=== PATIENT | female | born 1985 | race African-American/Black ===

== ENCOUNTER 2017-03-06 18:09 | Emergency (ER) | payer MEDICAID, OTHER ==
[~2017-03-06] VITALS: Ht 162.6 cm; Wt 89.0 kg
[2017-03-06] MEDS ORDERED: ONDANSETRON 4MG ODT PO ONE (23:30)
[2017-03-06] MEDS ORDERED: KETOROLAC 30MG/ML VIAL IM ONE (23:30)
[2017-03-07 00:44] VITALS: BP 119/67
== END 2017-03-07 00:45 | disposition home or self-care (01) ==
LOC: ER 19:18
DX: S39.012A Strain of muscle, fascia and tendon of lower back, initial encounter (principal); X58.XXXA Exposure to other specified factors, initial encounter; Y93.9 Activity, unspecified; Y92.9 Unspecified place or not applicable; J45.909 Unspecified asthma, uncomplicated
CPT/HCPCS: 81025; 96372; 99283; J1885; Q0162

== ENCOUNTER 2018-09-06 16:53 | Emergency (ER) | payer SELFPAY ==
[~2018-09-06] VITALS: Ht 170.2 cm; Wt 77.0 kg
[2018-09-06] MEDS ORDERED: IBUPROFEN 600MG TABLET PO ONE (17:45)
[2018-09-06] MEDS ORDERED: TETANUS, DIPHTHERIA, PERTUSSIS VAC/PF 0.5ML (>7YR OLD) IM ONE (18:00)
[2018-09-06] MEDS ORDERED: BACITRACIN ZINC OINT UDPKT TOP ONE (18:00)
[2018-09-06 18:28] VITALS: BP 136/82
== END 2018-09-06 22:49 | disposition home or self-care (01) ==
LOC: ER 16:53
DX: S40.022A Contusion of left upper arm, initial encounter (principal); S60.221A Contusion of right hand, initial encounter; J45.909 Unspecified asthma, uncomplicated; V49.88XA Car occupant (driver) (passenger) injured in other specified transport accidents, initial encounter; Y93.89 Activity, other specified; Y92.89 Other specified places as the place of occurrence of the external cause; Y99.8 Other external cause status
CPT/HCPCS: 73130; 81025; 90471; 90715; 99283

== ENCOUNTER 2021-07-26 23:13 | Emergency (ER) | payer BC ==
[~2021-07-26] VITALS: Ht 170.2 cm; Wt 100.0 kg
[2021-07-26 23:21] VITALS: BP 135/79
[2021-07-27 01:35] LABS: CLARITY URINE CLEAR (CLEAR); COLOR URINE YELLOW (YELLOW); KETONES URINE NEGATIVE (NEGATIVE); LEUKOCYTE ESTERASE URINE NEGATIVE (NEGATIVE); NITRITE URINE NEGATIVE (NEGATIVE); OCCULT BLOOD URINE 3+ (NEGATIVE); PH URINE 5.5 (4.5-8.0); PROTEIN URINE NEGATIVE (NEGATIVE); SPECIFIC GRAVITY URINE 1.026 (1.005-1.030); UROBILINOGEN URINE 0.2 E.U./dL (0.2-1.0)
[2021-07-27] MEDS ORDERED: ACETAMINOPHEN 325MG TABLET PO ONE (02:15)
[2021-07-27 02:20] LABS: BASOPHILS % 0.8 % (0.0-2.0); EOSINOPHILS % 0.5 % (0.0-5.0); HEMATOCRIT. 39.5 % (36.0-48.0); HEMOGLOBIN. 13.2 g/dL (12.0-16.0); LYMPHOCYTES % 37.2 % (20.0-50.0); MEAN CORPUSCULAR HEMOGLOBIN 29.7 pg (28.0-32.0); MEAN CORPUSCULAR VOLUME 88.8 fL (81.0-99.0); MEAN PLATELET VOLUME 8.5 fl (7.4-10.4); MONOCYTES % 4.7 % (2.0-8.0); NEUTROPHILS % 56.8 % (40.0-76.0); PLATELET 350 x1000/uL (130-400); RED BLOOD CELL COUNT 4.45 mill/uL (4.2-5.4); RED CELL DISTRIBUTION WIDTH 14.3 % (11.6-14.6)
[2021-07-27 02:27] LABS: CHLORIDE 107 mEq/L (98-107)
[2021-07-27 02:38] LABS: B-HCG QUANTITATIVE < 1 mIU/mL (<3)
[2021-07-27] MEDS ORDERED: IBUP-2029 MT (02:48)
== END 2021-07-27 03:06 | disposition home or self-care (01) ==
LOC: ER 23:13
DX: D25.9 Leiomyoma of uterus, unspecified (principal); N83.201 Unspecified ovarian cyst, right side; J45.909 Unspecified asthma, uncomplicated; M54.30 Sciatica, unspecified side
CPT/HCPCS: 36415; 76830; 76856; 80053; 81003; 81025; 84702; 85025; 86850; 86900; 99284

== ENCOUNTER 2023-04-03 05:16 | Emergency (ER) | payer BC ==
[~2023-04-03] VITALS: Ht 167.6 cm; Wt 100.0 kg
[~2023-04-03 05:16] MED LIST: IBUP-2029 MT
[2023-04-03] MEDS ORDERED: ALBUTEROL (0.5%) 2.5MG/0.5ML NEB HHN ONE (08:30)
[2023-04-03] MEDS ORDERED: IPRATROPIUM BROMIDE (0.02%) 0.5MG/2.5ML NEB HHN ONE (08:30)
[2023-04-03 09:13] LABS: CLARITY URINE SL HAZY (CLEAR); COLOR URINE YELLOW (YELLOW); GLUCOSE URINE NEGATIVE (NEGATIVE); KETONES URINE 1+ (NEGATIVE); OCCULT BLOOD URINE NEGATIVE (NEGATIVE); PH URINE 5.5 (4.5-8.0); PROTEIN URINE NEGATIVE (NEGATIVE); SPECIFIC GRAVITY URINE >=1.030 (1.005-1.030)
[2023-04-03 09:14] LABS: LEUKOCYTE ESTERASE URINE NEGATIVE (NEGATIVE); NITRITE URINE NEGATIVE (NEGATIVE); UROBILINOGEN URINE 0.2 E.U./dL (0.2-1.0)
[2023-04-03 09:17] LABS: RBC URINE 0-2 /hpf (0-2); YEAST URINE NONE SEEN
[2023-04-03 09:18] LABS: BACTERIA URINE 2+; MUCUS URINE 2+ /lpf (< = 2+); SQUAMOUS EPITHELIAL CELL URINE 1+ /lpf (RARE/1+)
[2023-04-03 09:56] VITALS: PULSE 79; RESP 18; O2SAT 99
[2023-04-03 10:11] LABS: BASOPHILS % 0.5 % (0.0-2.0); EOSINOPHILS % 0.3 % (0.0-5.0); HEMATOCRIT. 35.2 % (36.0-48.0); HEMOGLOBIN. 11.5 g/dL (12.0-16.0); LYMPHOCYTES % 24.3 % (20.0-50.0); MEAN CORPUSCULAR HEMOGLOBIN 28.9 pg (28.0-32.0); MEAN CORPUSCULAR HGB CONC 32.6 g/dL (31.0-37.0); MEAN CORPUSCULAR VOLUME 88.7 fL (81.0-99.0); MEAN PLATELET VOLUME 7.8 fl (7.4-10.4); MONOCYTES % 4.8 % (2.0-8.0); NEUTROPHILS % 70.1 % (40.0-76.0); PLATELET 441 x1000/uL (130-400); RED BLOOD CELL COUNT 3.97 mill/uL (4.2-5.4); RED CELL DISTRIBUTION WIDTH 14.2 % (11.6-14.6); WHITE BLOOD COUNT 14.7 x1000/uL (4.5-11.0)
[2023-04-03 10:45] LABS: ALANINE AMINOTRANSFERASE < 7 IU/L (10-49); ALBUMIN 4.2 g/dL (3.2-4.8); ASPARTATE AMINOTRANSFERASE 10 IU/L (<34); BILIRUBIN TOTAL 0.6 mg/dL (0.1-1.0); CALCIUM 9.1 mg/dL (8.7-10.4); CARBON DIOXIDE 25 mEq/L (21-32); CHLORIDE 104 mEq/L (98-107); CREATININE 0.6 mg/dL (0.6-1.0); GLUCOSE 89 mg/dL (70-105); POTASSIUM 3.4 mEq/L (3.5-5.1); PROTEIN TOTAL 6.4 g/dL (6.0-8.3); SODIUM 138 mEq/L (136-145); UREA NITROGEN BLOOD 9 mg/dL (9-23)
[2023-04-03 11:39] VITALS: BP 125/57; PULSE 79; RESP 18; TEMP 98.2
== END 2023-04-03 11:42 | disposition home or self-care (01) ==
LOC: ER 05:25
DX: O20.0 Threatened abortion (principal); O99.511 Diseases of the respiratory system complicating pregnancy, first trimester; Z3A.00 Weeks of gestation of pregnancy not specified; Z20.822 Contact with and (suspected) exposure to COVID-19
CPT/HCPCS: 80053; 81003; 81025; 84702; 85025; 86850; 86900; 86901; 87804 ×2; 36415; 71045; 76801; 76817; 94640; 99284; 87426; Z7610 ×3; C9803

== ENCOUNTER 2024-09-06 23:56 | Emergency (ER) | payer MEDICAID ==
[~2024-09-06] VITALS: Ht 170.2 cm; Wt 107.0 kg
[2024-09-06 23:58] VITALS: O2SAT 100
[2024-09-07 00:50] VITALS: BP 141/82; PULSE 94; TEMP 36.9; O2SAT 100
[2024-09-07 01:59] LABS: CHLORIDE 104 mEq/L (98-107); SODIUM 138 mEq/L (136-145)
[2024-09-07 02:00] LABS: CALCIUM 9.4 mg/dL (8.7-10.4); CARBON DIOXIDE 26 mEq/L (21-32)
[2024-09-07 02:05] LABS: CREATININE 0.8 mg/dL (0.6-1.0); GLUCOSE 87 mg/dL (70-105); UREA NITROGEN BLOOD 12 mg/dL (9-23)
[2024-09-07 02:09] LABS: BASOPHILS % 0.5 % (0.0-2.0); EOSINOPHILS % 0.4 % (0.0-5.0); HEMATOCRIT. 40.8 % (36.0-48.0); HEMOGLOBIN. 13.7 g/dL (12.0-16.0); LYMPHOCYTES % 26.8 % (20.0-50.0); MEAN CORPUSCULAR HGB CONC 33.6 g/dL (31.0-37.0); MEAN CORPUSCULAR VOLUME 89.3 fL (81.0-99.0); MEAN PLATELET VOLUME 8.4 fl (7.4-10.4); MONOCYTES % 4.6 % (2.0-8.0); NEUTROPHILS % 67.7 % (40.0-76.0); PLATELET 394 x1000/uL (130-400); RED BLOOD CELL COUNT 4.57 mill/uL (4.2-5.4); RED CELL DISTRIBUTION WIDTH 13.1 % (11.6-14.6); WHITE BLOOD COUNT 11.7 x1000/uL (4.5-11.0)
[2024-09-07] MEDS: DEXAMETHASONE 10 MG/ML VIAL IM ONE (04:17)
[2024-09-07 04:18] VITALS: RESP 13
[2024-09-07] MEDS: LIDOCAINE 5% PATCH TOP SCH (04:18)
[2024-09-07 04:33] LABS: HCG SCREEN NEGATIVE
[2024-09-07] MEDS ORDERED: NAPR-1176 MT (06:07)
[2024-09-07] MEDS ORDERED: LIDO-53 TP (06:07)
== END 2024-09-07 06:20 | disposition home or self-care (01) ==
LOC: ER 23:56
DX: M51.369 Other intervertebral disc degeneration, lumbar region without mention of lumbar back pain or lower extremity pain (principal); J45.909 Unspecified asthma, uncomplicated; Z98.890 Other specified postprocedural states
CPT/HCPCS: 99285; 81025; 72131; 80048; 84703; 83690; 85025; 36415; 96372; J1100

== ENCOUNTER 2024-11-21 15:49 | Emergency (ER) | payer MEDICAID ==
[~2024-11-21] VITALS: Ht 167.6 cm; Wt 91.0 kg
[~2024-11-21 15:49] MED LIST changes: +LIDO-53 TP; +NAPR-1176 MT
[2024-11-21 15:51] VITALS: O2SAT 99
[2024-11-21 15:56] VITALS: TEMP 36.9; O2SAT 96
[2024-11-21 18:23] LABS: CLARITY URINE CLOUDY (CLEAR); COLOR URINE YELLOW (YELLOW); GLUCOSE URINE NEGATIVE (NEGATIVE); KETONES URINE TRACE (NEGATIVE); LEUKOCYTE ESTERASE URINE NEGATIVE (NEGATIVE); NITRITE URINE NEGATIVE (NEGATIVE); OCCULT BLOOD URINE NEGATIVE (NEGATIVE); PH URINE 5.5 (4.5-8.0); PROTEIN URINE 1+ (NEGATIVE); SPECIFIC GRAVITY URINE 1.045 (1.005-1.030); UROBILINOGEN URINE 0.2 E.U./dL (0.2-1.0)
[2024-11-21 18:46] LABS: RBC URINE 0-2 /hpf (0-2); WBC URINE 0-2 /hpf (0-2)
[2024-11-21 18:47] LABS: BACTERIA URINE 2+; SQUAMOUS EPITHELIAL CELL URINE 2+ /lpf (RARE/1+)
[2024-11-21] MEDS: LIDOCAINE HCL 1% 20ML VIAL INFIL ONE (19:15)
[2024-11-21] MEDS: KETOROLAC 15MG/ML VIAL IV ONE (19:31)
[2024-11-21 19:52] LABS: BASOPHILS % 0.3 % (0.0-2.0); EOSINOPHILS % 0.2 % (0.0-5.0); HEMATOCRIT. 35.6 % (36.0-48.0); HEMOGLOBIN. 11.8 g/dL (12.0-16.0); LYMPHOCYTES % 16.4 % (20.0-50.0); MEAN PLATELET VOLUME 8.2 fl (7.4-10.4); MONOCYTES % 4.5 % (2.0-8.0); NEUTROPHILS % 78.6 % (40.0-76.0); PLATELET 412 x1000/uL (130-400); RED BLOOD CELL COUNT 3.93 mill/uL (4.2-5.4); RED CELL DISTRIBUTION WIDTH 13.5 % (11.6-14.6)
[2024-11-21 20:01] LABS: CREATININE 0.8 mg/dL (0.6-1.0); UREA NITROGEN BLOOD 11 mg/dL (9-23)
[2024-11-21 22:31] VITALS: BP 111/64; PULSE 85; RESP 15
[2024-11-21] MEDS: HYDROCODONE/ACETAMINOPHEN 5/325MG TABLET PO ONE (22:31)
[2024-11-21] MEDS: IOHEXOL-300 100 ML BOTTLE ONE (22:51)
[2024-11-21] MEDS ORDERED: IBUP-2029 MT (23:11)
[2024-11-21] MEDS ORDERED: SULF1TAB48 MT (23:11)
[2024-11-21] MEDS ORDERED: AMOX1TAB16 MT (23:11)
== END 2024-11-21 23:43 | disposition home or self-care (01) ==
LOC: ER 15:49
DX: K61.0 Anal abscess (principal); J45.909 Unspecified asthma, uncomplicated; Z79.899 Other long term (current) drug therapy; Z98.890 Other specified postprocedural states
CPT/HCPCS: 80048; 81003; 85025; 36415; 74177; 46050; 96374; 99285; Q9967; J1885; J2003; Z7610 ×3

== ENCOUNTER 2024-11-23 13:42 | Emergency (ER) | payer MEDICAID ==
[~2024-11-23] VITALS: Ht 170.2 cm; Wt 97.0 kg
[~2024-11-23 13:42] MED LIST changes: +AMOX1TAB16 MT; +SULF1TAB48 MT
[2024-11-23 13:45] VITALS: PULSE 100; RESP 16; O2SAT 98
[2024-11-23 13:49] VITALS: BP 119/75; TEMP 36.7; O2SAT 99
== END 2024-11-23 15:27 | disposition home or self-care (01) ==
LOC: ER 13:42
DX: K61.0 Anal abscess (principal); J45.909 Unspecified asthma, uncomplicated; D64.9 Anemia, unspecified; Z79.899 Other long term (current) drug therapy
CPT/HCPCS: 99283

== ENCOUNTER 2024-11-26 21:41 | Emergency (ER) | payer MEDICAID ==
[~2024-11-26] VITALS: Ht 170.2 cm; Wt 98.0 kg
[2024-11-26 22:21] VITALS: O2SAT 99
[2024-11-27 01:12] VITALS: BP 118/69; PULSE 82; RESP 16; TEMP 36.8; O2SAT 97
[2024-11-27] MEDS ORDERED: FLUC150T46 PO (13:13)
[2024-11-27] MEDS ORDERED: CLIN-194 MT (13:13)
[2024-11-27] MEDS ORDERED: SULF1TAB48 MT (13:13)
[2024-11-27] MEDS ORDERED: IBUP-2030 MT (13:13)
== END 2024-11-27 01:14 | disposition home or self-care (01) ==
LOC: ER 21:41
DX: K61.0 Anal abscess (principal); Z48.00 Encounter for change or removal of nonsurgical wound dressing; J45.909 Unspecified asthma, uncomplicated; Z79.1 Long term (current) use of non-steroidal anti-inflammatories (NSAID); Z98.890 Other specified postprocedural states
CPT/HCPCS: 99281

== ENCOUNTER 2024-11-27 09:41 | Emergency (ER) | payer MEDICAID ==
[~2024-11-27] VITALS: Ht 170.2 cm; Wt 97.0 kg
[2024-11-27 09:46] VITALS: O2SAT 98
[2024-11-27] MEDS: IBUPROFEN 800MG TABLET PO ONE (12:20)
[2024-11-27] MEDS: TRAMADOL 50MG TABLET PO ONE (12:20)
[2024-11-27] MEDS: LIDOCAINE HCL 1% 20ML VIAL INFIL ONE (13:07)
[2024-11-27] MEDS ORDERED: SULF1TAB48 MT (13:13)
[2024-11-27] MEDS ORDERED: IBUP-2030 MT (13:13)
[2024-11-27] MEDS ORDERED: FLUC150T46 PO (13:13)
[2024-11-27] MEDS ORDERED: CLIN-194 MT (13:13)
[2024-11-27 13:58] VITALS: BP 126/76; PULSE 100; RESP 18; TEMP 36.5; O2SAT 98
== END 2024-11-27 14:02 | disposition home or self-care (01) ==
LOC: ER 09:41
DX: K61.0 Anal abscess (principal); J45.909 Unspecified asthma, uncomplicated; D64.9 Anemia, unspecified; Z98.890 Other specified postprocedural states
CPT/HCPCS: 81025; 46050; 99284; J2003; Z7610 ×4

== ENCOUNTER 2024-11-29 14:15 | Emergency (ER) | payer MEDICAID ==
[~2024-11-29] VITALS: Ht 170.2 cm; Wt 97.0 kg
[~2024-11-29 14:15] MED LIST changes: +CLIN-194 MT; +FLUC150T46 PO; +IBUP-2030 MT
[2024-11-29 14:23] VITALS: TEMP 36.7; O2SAT 97
[2024-11-29] MEDS: LIDOCAINE HCL 1% 20ML VIAL INFIL ONE (16:31)
[2024-11-29] MEDS: HYDROCODONE/ACETAMINOPHEN 5/325MG TABLET PO ONE (16:32)
[2024-11-29 17:40] VITALS: BP 120/86; PULSE 76; RESP 16; O2SAT 100
== END 2024-11-29 18:22 | disposition home or self-care (01) ==
LOC: ER 14:15
DX: Z48.817 Encounter for surgical aftercare following surgery on the skin and subcutaneous tissue (principal); J45.909 Unspecified asthma, uncomplicated; D64.9 Anemia, unspecified; Z98.890 Other specified postprocedural states; Z79.899 Other long term (current) drug therapy
CPT/HCPCS: 99283; J2003; Z7610 ×2

== ENCOUNTER 2024-12-12 23:26 | Emergency (ER) | payer MEDICAID ==
[~2024-12-12] VITALS: Ht 170.2 cm; Wt 98.0 kg
[~2024-12-12 23:26] MED LIST changes: +IBUP-1455 MT; -IBUP-2029 MT
[2024-12-12 23:37] VITALS: O2SAT 100
[2024-12-13] MEDS: HYDROCODONE/ACETAMINOPHEN 5/325MG TABLET PO ONE (01:14)
[2024-12-13] MEDS: LIDOCAINE HCL/EPINEPHRINE 1%-EPI 1:100,000 20ML VIAL INFIL ONE (01:14)
[2024-12-13 03:03] VITALS: BP 118/71; PULSE 78; RESP 18; TEMP 36.8; O2SAT 99
== END 2024-12-13 03:30 | disposition home or self-care (01) ==
LOC: ER 23:26
DX: L02.215 Cutaneous abscess of perineum (principal)
CPT/HCPCS: 81025; 46050; 99284; J2004; Z7610 ×2; 99283

== ENCOUNTER 2024-12-15 06:19 | Emergency (ER) | payer MEDICAID ==
[~2024-12-15] VITALS: Ht 170.2 cm; Wt 98.0 kg
[~2024-12-15 06:19] MED LIST changes: -IBUP-1455 MT; +IBUP-2029 MT
[2024-12-15 06:27] VITALS: O2SAT 98
[2024-12-15 06:28] VITALS: BP 111/62; PULSE 89; RESP 18; TEMP 36.6; O2SAT 99
== END 2024-12-15 07:59 | disposition home or self-care (01) ==
LOC: ER 06:19
DX: J45.909 Unspecified asthma, uncomplicated (principal); Z48.817 Encounter for surgical aftercare following surgery on the skin and subcutaneous tissue; Z79.1 Long term (current) use of non-steroidal anti-inflammatories (NSAID)
CPT/HCPCS: 99282

== ENCOUNTER 2025-03-28 02:16 | Emergency (ER) | payer MEDICAID ==
[~2025-03-28] VITALS: Ht 167.6 cm; Wt 100.0 kg
[~2025-03-28 02:16] MED LIST changes: +IBUP-1455 MT; -IBUP-2029 MT
[2025-03-28 03:08] VITALS: TEMP 37; O2SAT 100
[2025-03-28] MEDS ORDERED: SULF1TAB48 MT (03:57)
[2025-03-28 04:17] VITALS: BP 119/66; PULSE 88; RESP 18; O2SAT 98
== END 2025-03-28 04:20 | disposition home or self-care (01) ==
LOC: ER 02:16
DX: Z48.817 Encounter for surgical aftercare following surgery on the skin and subcutaneous tissue (principal); J45.909 Unspecified asthma, uncomplicated; Z79.1 Long term (current) use of non-steroidal anti-inflammatories (NSAID)
CPT/HCPCS: 99283